=== PATIENT | male | born 1980 | race Caucasian/White ===

== ENCOUNTER 2022-12-12 22:38 | Emergency (ER) | payer SELFPAY ==
[2022-12-12] MEDS ORDERED: Sodium Chloride 0.9% 10 ML Syringe FLUSH PRN (23:36)
[2022-12-12] MEDS ORDERED: Sodium Chloride 0.9% 2.5 ML Syringe FLUSH PRN (23:36)
[2022-12-12] MEDS ORDERED: Sodium Chloride 0.9% 1,000 ML IV ONE (23:40)
[2022-12-12 23:47] LABS: HEMATOCRIT 43.6 % (38.0-50.0); HEMOGLOBIN 14.5 g/dL (13.0-17.0); MEAN CORPUSCULAR HEMOGLOBIN 30.5 pg (27.0-32.0); MEAN CORPUSCULAR HGB CONC 33.3 g/dL (31.0-37.0); MEAN CORPUSCULAR VOLUME 91.8 fL (80.0-98.0); NRBC ABSOLUTE 0 K/uL; PLATELET COUNT,PLT 245 K/uL (150-400); RED BLOOD CELL COUNT 4.75 M/uL (4.50-5.90)
[2022-12-12] MEDS ORDERED: Ampicillin/Sulbactam Na 3 GM in Sodium Chloride 0.9% 100 ML IV ONE (23:49)
[2022-12-13 00:15] LABS: A/G RATIO 1.1 (0.9-1.6); ALANINE AMINOTRANSFERASE,ALT 28 IU/L (14-63); ALKALINE PHOSPHATASE 99 U/L (46-116); ASPARTATE AMNIOTRANSFERASE,AST 22 IU/L (15-37); BILIRUBIN TOTAL 0.3 mg/dL (0.2-1.0); BLOOD UREA NITROGEN,BUN 18 mg/dL (7.0-18.0); CALCIUM 8.5 mg/dL (8.5-10.1); CARBON DIOXIDE,CO2 25.8 mmol/L (21.0-32.0); CHLORIDE,CL 102 mmol/L (98-107); CREATININE 1.1 mg/dL (0.8-1.3); EST CRCL DRUG DOSING (CG) 80.18 mL/min; GLUCOSE RANDOM 106 mg/dL (74-106); POTASSIUM,K 3.7 mmol/L (3.5-5.1); PROTEIN TOTAL,TP 7.7 g/dL (6.4-8.2); SODIUM,NA 138 mmol/L (136-148)
[2022-12-13 00:17] LABS: ESTIMATED GFR 87 mL/min (>60); ETHANOL BLOOD MEDICAL < 3.0 mg/dL
[2022-12-13] MEDS ORDERED: Iopamidol 755 MG/ML 500 ML Multipack Bottle IVPUSH ONE (00:25)
[2022-12-13 00:43] LABS: BASE EXCESS VENOUS 0.4 (-2.0-3.0); PH,VENOUS 7.39 (7.31-7.41)
[2022-12-13 00:51] LABS: EOSINOPHILS ABSOLUTE MAN 0.2 (0.0-0.7); EOSINOPHILS PERCENT MAN 3 % (0.0-7.0); LYMPHOCYTES ABSOLUTE MAN 0.9 (0.6-2.4); LYMPHOCYTES PERCENT MAN 12 % (16.0-40.0); MONOCYTES ABSOLUTE MAN 1.1 (0.0-0.8); MONOCYTES PERCENT MAN 14 % (0.0-15.0)
[2022-12-13 00:52] LABS: BAND ABSOLUTE MAN 0.2; BAND PERCENT MAN 2 %; SEG NEUTROPHILS ABSOLUTE MAN 5.5 (1.4-5.7); SEG NEUTROPHILS PERCENT MAN 69 % (48.0-80.0)
[2022-12-13] MEDS ORDERED: Acetaminophen 500 MG Tab PO ONE (01:15)
[2022-12-13 01:16] LABS: APPEARANCE,URINE CLEAR; BILIRUBIN,URINE NEGATIVE (NEGATIVE); COLOR,URINE YELLOW; GLUCOSE,URINE NEGATIVE (NEGATIVE); KETONES,URINE NEGATIVE (NEGATIVE); LEUKOCYTE ESTERASE,URINE NEGATIVE (NEGATIVE); NITRITE,URINE NEGATIVE (NEGATIVE); OCCULT BLOOD,URINE NEGATIVE (NEGATIVE); PH,URINE 6.5 (5.0-8.0); PROTEIN,URINE NEGATIVE (NEGATIVE); UROBILINOGEN,URINE 0.2 EU/dL (<2.0)
[2022-12-13 01:24] LABS: AMPHETAMINES SCREEN, URINE NEGATIVE (CUTOFF=500); BARBITURATE SCREEN,URINE NEGATIVE (CUTOFF=200); BENZODIAZEPINES SCREEN,URINE NEGATIVE (CUTOFF=150); BUPRENORPHINE SCREEN,URINE NEGATIVE (CUTOFF=10); METHADONE SCREEN, URINE NEGATIVE (CUTOFF=200); METHAMPHETAMINES SCREEN, URINE NEGATIVE (CUTOFF=500); OXYCODONE SCREEN,URINE NEGATIVE (CUT0FF=100); PCP SCREEN,URINE NEGATIVE (CUTOFF=25); PROPOXYPHENE SCREEN,URINE NEGATIVE (CUTOFF=300); THC SCREEN,URINE 20 NG/ML NEGATIVE (CUTOFF=50)
== END 2022-12-13 02:34 | disposition home or self-care (01) ==
LOC: MW.ED 22:38
DX: U07.1 COVID-19 (principal); L03.211 Cellulitis of face
CPT/HCPCS: 36415; 70450; 70487; 71045; 80053; 80305; 80307; 81003; 82803; 83605; 84484; 85025; 85610; 87040; 87635; 93005; 96365; 99284; A9270; J0295; J3490; J7030; Q9967; 93010; U0002

== ENCOUNTER 2022-12-17 12:30 | Emergency (ER) | payer SELFPAY | END 2022-12-17 12:41 | disposition left against medical advice (07) | LOC: MW.ED 12:30 | DX: Z53.21 Procedure and treatment not carried out due to patient leaving prior to being seen by health care provider (principal) ==

== ENCOUNTER 2022-12-17 12:42 | Emergency (ER) | payer SELFPAY | END 2022-12-17 12:49 | disposition left against medical advice (07) | LOC: MW.ED 12:42 | DX: Z53.21 Procedure and treatment not carried out due to patient leaving prior to being seen by health care provider (principal) ==

== ENCOUNTER 2023-10-08 21:43 | Emergency (ER) | payer SELFPAY ==
[2023-10-08] MEDS: Alum Hydro/Mag Hydro/Simeth XS 15 ML, Lidocaine 2% 5 ML PO ONE (22:35)
[2023-10-08] MEDS: Sodium Chloride 0.9% 10 ML Syringe FLUSH PRN (22:36)
[2023-10-08] MEDS: Sodium Chloride 0.9% 2.5 ML Syringe FLUSH PRN (22:36)
[2023-10-08] MEDS: Pantoprazole 40 MG in Sodium Chloride 0.9% 10 ML IVPUSH ONE (22:36)
[2023-10-08 22:42] LABS: APPEARANCE,URINE CLEAR; BILIRUBIN,URINE NEGATIVE (NEGATIVE); COLOR,URINE YELLOW; GLUCOSE,URINE NEGATIVE (NEGATIVE); KETONES,URINE NEGATIVE (NEGATIVE); LEUKOCYTE ESTERASE,URINE NEGATIVE (NEGATIVE); NITRITE,URINE NEGATIVE (NEGATIVE); OCCULT BLOOD,URINE NEGATIVE (NEGATIVE); PH,URINE 5.5 (5.0-8.0); PROTEIN,URINE NEGATIVE (NEGATIVE); UROBILINOGEN,URINE 0.2 EU/dL (<2.0)
[2023-10-08 22:43] LABS: BASOPHILS ABSOLUTE AUTO 0.09 K/uL (0.00-0.20); BASOPHILS PERCENT AUTO 0.8 % (0.0-1.0); EOSINOPHILS PERCENT AUTO 2.8 % (0.0-6.0); HEMATOCRIT 48.2 % (42.0-52.0); HEMOGLOBIN 16.2 g/dL (14.0-18.0); IMMATURE GRAN ABSOLUTE AUTO 0.03 K/uL (0.00-0.05); IMMATURE GRAN PERCENT AUTO 0.3 % (0.0-0.4); LYMPHOCYTES ABSOLUTE AUTO 3.07 K/uL (1.00-4.80); LYMPHOCYTES PERCENT AUTO 28.5 % (24.0-44.0); MEAN CORPUSCULAR HEMOGLOBIN 28.6 pg (28.0-32.0); MEAN CORPUSCULAR HGB CONC 33.6 g/dL (32.0-36.0); MEAN PLATELET VOLUME 8.5 fL (9.4-12.4); MONOCYTES ABSOLUTE AUTO 1.43 K/uL (0.00-0.80); MONOCYTES PERCENT AUTO 13.3 % (0.0-8.0); NEUTROPHILS ABSOLUTE AUTO 5.87 K/uL (1.80-7.70); NEUTROPHILS PERCENT AUTO 54.3 % (41.0-71.0); PLATELET COUNT,PLT 368 K/uL (150-400); RED BLOOD CELL COUNT 5.67 M/uL (4.52-5.90); WHITE BLOOD CELL COUNT,WBC 10.79 K/uL (3.9-11.3)
[2023-10-08 22:50] LABS: AMPHETAMINES SCREEN, URINE NEGATIVE (CUTOFF=500); BARBITURATE SCREEN,URINE NEGATIVE (CUTOFF=200); BENZODIAZEPINES SCREEN,URINE NEGATIVE (CUTOFF=150); BUPRENORPHINE SCREEN,URINE NEGATIVE (CUTOFF=10); METHADONE SCREEN, URINE NEGATIVE (CUTOFF=200); METHAMPHETAMINES SCREEN, URINE NEGATIVE (CUTOFF=500); OXYCODONE SCREEN,URINE NEGATIVE (CUT0FF=100); PCP SCREEN,URINE NEGATIVE (CUTOFF=25); THC SCREEN,URINE 20 NG/ML PRESUMPTIVE POSITIVE (CUTOFF=50)
[2023-10-08 22:57] LABS: INR 1.05 (0.86-1.11)
[2023-10-08 23:12] LABS: A/G RATIO 1.2 (0.9-1.6); ALANINE AMINOTRANSFERASE,ALT 37 IU/L (14-63); ALBUMIN 4.5 g/dL (3.4-5.0); ALKALINE PHOSPHATASE 114 U/L (46-116); ASPARTATE AMNIOTRANSFERASE,AST 22 IU/L (15-37); BILIRUBIN TOTAL 0.7 mg/dL (0.2-1.0); BLOOD UREA NITROGEN,BUN 30 mg/dL (7.0-18.0); CALCIUM 8.9 mg/dL (8.5-10.1); CARBON DIOXIDE,CO2 24.3 mmol/L (21.0-32.0); CHLORIDE,CL 96 mmol/L (98-107); CREATININE 1.5 mg/dL (0.8-1.3); EST CRCL DRUG DOSING (CG) 60.04 mL/min; GLUCOSE RANDOM 84 mg/dL (74-106); LIPASE 21 U/L (16-77); POTASSIUM,K 3.7 mmol/L (3.5-5.1); PROTEIN TOTAL,TP 8.2 g/dL (6.4-8.2); SODIUM,NA 135 mmol/L (136-148)
[2023-10-08 23:12] LABS: LACTIC ACID 0.8 mmol/L (0.4-2.0)
[2023-10-08 23:13] LABS: ESTIMATED GFR 60 mL/min (>60); ETHANOL BLOOD MEDICAL < 3.0 mg/dL
[2023-10-08] MEDS: Sodium Chloride 0.9% 1,000 ML IV ONE (23:28)
== END 2023-10-08 23:48 | disposition home or self-care (01) ==
LOC: MW.ED 21:43
DX: K92.0 Hematemesis (principal); R10.13 Epigastric pain; F17.210 Nicotine dependence, cigarettes, uncomplicated
CPT/HCPCS: 36415; 80053; 80305; 80307; 81003; 83605; 83690; 84484; 85025; 85610; 86850; 86900; 86901; 93005; 96374; 99285; A9270; J3490; J7030; 93010; J2470

== ENCOUNTER 2023-10-23 11:04 | Day surgery (SDC) | payer SELFPAY ==
[~2023-10-23 11:04] MED LIST: Lactated Ringers 1,000 ML IV SCH
[2023-10-23] MEDS ORDERED: Propofol 200 MG/20 ML SDV ONE ×2 (12:02→12:25)
[2023-10-23] MEDS: Lactated Ringers 1,000 ML IV SCH (12:09)
[2023-10-23] MEDS ORDERED: dexmedeTOMIDine HCl 200 MCG/2 ML SDV ONE (12:34)
[2023-10-23] MEDS ORDERED: Lactated Ringers 1,000 ML IV SCH (13:00)
[2023-10-26] MEDS ORDERED: Lactated Ringers 1,000 ML IV SCH (07:30)
== END 2023-10-23 13:25 | disposition home or self-care (01) ==
LOC: MW.SDS 11:04
PROVIDERS: ATTEND Surgery
DX: K20.90 Esophagitis, unspecified without bleeding (principal); F32.A Depression, unspecified; F17.210 Nicotine dependence, cigarettes, uncomplicated
CPT/HCPCS: 43239; J2704; J7120; 00731; J3490

== ENCOUNTER 2023-11-21 11:08 | Emergency (ER) | payer SELFPAY ==
[2023-11-21] MEDS: Benzocaine 20% Topical Spray UD MUCMEM ONE (11:37)
[2023-11-21] MEDS: Lidocaine 2% Viscous Solution 15 ML UD PO ONE (11:37)
[2023-11-21] MEDS: Acetaminophen/HYDROcodone 325-5 MG Tab PO ONE (11:43)
== END 2023-11-21 11:45 | disposition home or self-care (01) ==
LOC: MW.ED 11:08
DX: K04.7 Periapical abscess without sinus (principal); Z79.899 Other long term (current) drug therapy; Z75.8 Other problems related to medical facilities and other health care
CPT/HCPCS: 99283; A9270

== ENCOUNTER 2024-04-30 15:51 | Emergency (ER) | payer SELFPAY | END 2024-04-30 19:00 | disposition left against medical advice (07) | LOC: MW.ED 15:51 | DX: Z53.21 Procedure and treatment not carried out due to patient leaving prior to being seen by health care provider (principal) | CPT/HCPCS: 87428-QW ==

== ENCOUNTER 2024-05-01 01:04 | Emergency (ER) | payer SELFPAY | END 2024-05-01 01:56 | disposition left against medical advice (07) | LOC: MW.ED 01:04 | DX: Z53.21 Procedure and treatment not carried out due to patient leaving prior to being seen by health care provider (principal) ==

== ENCOUNTER 2024-05-01 11:13 | Emergency (ER) | payer SELFPAY ==
[2024-05-01] MEDS ORDERED: Sodium Chloride 0.9% 2.5 ML Syringe FLUSH PRN (12:28)
[2024-05-01] MEDS: Sodium Chloride 0.9% 1,000 ML IV ONE (12:33)
[2024-05-01] MEDS: Sodium Chloride 0.9% 10 ML Syringe FLUSH PRN (12:33)
[2024-05-01] MEDS: Ketorolac 30 MG/ML SDV IVPUSH ONE (12:33)
[2024-05-01] MEDS: Ondansetron 4 MG/2 ML SDV IVPUSH ONE (12:33)
[2024-05-01 12:38] LABS: BASOPHILS ABSOLUTE AUTO 0.05 K/uL (0.00-0.20); BASOPHILS PERCENT AUTO 1.1 % (0.0-1.0); EOSINOPHILS ABSOLUTE AUTO 0.01 K/uL (0.00-0.45); EOSINOPHILS PERCENT AUTO 0.2 % (0.0-6.0); HEMATOCRIT 49.6 % (42.0-52.0); HEMOGLOBIN 17.2 g/dL (14.0-18.0); IMMATURE GRAN ABSOLUTE AUTO 0.01 K/uL (0.00-0.05); IMMATURE GRAN PERCENT AUTO 0.2 % (0.0-0.4); LYMPHOCYTES ABSOLUTE AUTO 1.04 K/uL (1.00-4.80); LYMPHOCYTES PERCENT AUTO 22.5 % (24.0-44.0); MEAN CORPUSCULAR HEMOGLOBIN 29.7 pg (28.0-32.0); MEAN CORPUSCULAR HGB CONC 34.7 g/dL (32.0-36.0); MEAN CORPUSCULAR VOLUME 85.7 fL (83.0-99.0); MEAN PLATELET VOLUME 8.8 fL (9.4-12.4); MONOCYTES ABSOLUTE AUTO 0.52 K/uL (0.00-0.80); MONOCYTES PERCENT AUTO 11.2 % (0.0-8.0); NEUTROPHILS PERCENT AUTO 64.8 % (41.0-71.0); PLATELET COUNT,PLT 133 K/uL (150-400); RED BLOOD CELL COUNT 5.79 M/uL (4.52-5.90); WHITE BLOOD CELL COUNT,WBC 4.63 K/uL (3.9-11.3)
[2024-05-01 12:48] LABS: A/G RATIO 0.9 (0.9-1.6); ALBUMIN 3.8 g/dL (3.4-5.0); BILIRUBIN TOTAL 0.3 mg/dL (0.2-1.0); CALCIUM 8.7 mg/dL (8.5-10.1); CARBON DIOXIDE,CO2 28.7 mmol/L (21.0-32.0); CREATININE 1.3 mg/dL (0.8-1.3); EST CRCL DRUG DOSING (CG) 69.1 mL/min; POTASSIUM,K 4.3 mmol/L (3.5-5.1); PROTEIN TOTAL,TP 7.9 g/dL (6.4-8.2)
== END 2024-05-01 13:22 | disposition home or self-care (01) ==
LOC: MW.ED 11:13
DX: R11.10 Vomiting, unspecified (principal); K21.9 Gastro-esophageal reflux disease without esophagitis; F17.210 Nicotine dependence, cigarettes, uncomplicated; Z75.8 Other problems related to medical facilities and other health care; Z79.899 Other long term (current) drug therapy
CPT/HCPCS: 36415; 80053; 85025; 96361; 96374; 96375; 99284; J1885; J2405; J7030